=== PATIENT | male | born 1995 | race Caucasian/White ===

== ENCOUNTER 2018-02-13 17:12 | Emergency (ER) | payer OTHER ==
[2018-02-13 17:26] VITALS: BP 134/60
[2018-02-13] MEDS ORDERED: predniSONE TAB* 20 MG PO ONE (17:49)
--- NOTE | 2018-02-13 18:19 | UC ---
Skin Complaint HPI - HPI Summary HPI Summary: This is a 22-year-old male presenting with 1 day history of rash to his arms and legs. Rash is pruritic and spreading. A few days ago he had been out on a hike. - History of Current Complaint Chief Complaint: UCSkin Time Seen by Provider: 02/13/18 17:27 Stated Complaint: SKIN COMPLAINT Hx Obtained From: Patient Onset/Duration: Gradual Onset Timing: Constant Onset Severity: Mild Current Severity: Mild Pain Intensity: 0 Pain Scale Used: 0-10 Numeric Location: Other - arms and legs Character: Swelling, Pruritus, Redness Aggravating Factor(s): Nothing Alleviating Factor(s): Nothing Associated Signs & Symptoms: Positive: Rash - Allergy/Home Medications Allergies/Adverse Reactions: Allergies Allergy/AdvReac Type Severity Reaction Status Date / Time amoxicillin Allergy Hives Verified 02/13/18 17:24 Review of Systems Constitutional: Negative Skin: Rash Eyes: Negative ENT: Negative Respiratory: Negative Cardiovascular: Negative Gastrointestinal: Negative Genitourinary: Negative Motor: Negative Neurovascular: Negative Musculoskeletal: Negative Neurological: Negative Psychological: Negative Is Patient Immunocompromised?: No All Other Systems Reviewed And Are Negative: Yes PMH/Surg Hx/FS Hx/Imm Hx Previously Healthy: Yes - Surgical History Surgical History: None - Family History Known Family History: Positive: Hypertension - Social History Alcohol Use: Occasionally Substance Use Type: None Smoking Status (MU): Never Smoked Tobacco - Immunization History Most Recent Tetanus Shot: 01/12/16 Vaccination Up to Date: Yes Physical Exam Triage Information Reviewed: Yes Appearance: Well-Appearing, No Pain Distress, Well-Nourished Vital Signs: Initial Vital Signs Temp 98.8 F 02/13/18 17:22 Pulse 84 02/13/18 17:22 Resp 15 02/13/18 17:22 BP 134/60 02/13/18 17:22 Pulse Ox 98 02/13/18 17:22 Vital Signs Reviewed: Yes Eyes: Positive: Conjunctiva Clear ENT: Positive: Hearing grossly normal. Negative: Pharyngeal erythema, Nasal drainage, Trismus, Muffled voice, Hoarse voice Neck: Positive: Supple, Nontender Respiratory: Positive: Lungs clear, Normal breath sounds, No respiratory distress Cardiovascular: Positive: RRR, No Murmur Musculoskeletal: Positive: ROM Intact, No Edema Neurological: Positive: Alert Psychological Exam: Normal Skin Exam: Other - rash c/w contact derm Course/Dx - Diagnoses Provider Diagnoses: contact dermatitis Discharge - Sign-Out/Discharge Documenting (check all that apply): Discharge/Admit/Transfer - Discharge Plan Condition: Critical Disposition: HOME Prescriptions: predniSONE TAB* [Deltasone 10 MG TAB*] 10 - 60 mg PO DAILY #43 tab Patient Education Materials: Contact Dermatitis (ED) Referrals: Ananth Birmingham MD [Primary Care Provider] - If Needed Additional Instructions: take two 25mg benadryl at bedtime if needed for itching calomine lotion - Billing Disposition and Condition Condition: CRITICAL Disposition: Home
== END 2018-02-13 18:00 | disposition home or self-care (01) ==
LOC: UCCORT 17:12
DX: L25.9 Unspecified contact dermatitis, unspecified cause (principal); Z88.0 Allergy status to penicillin
CPT/HCPCS: 99212; G0463; J7512

== ENCOUNTER 2019-10-13 14:20 | Emergency (ER) | payer OTHER ==
[2019-10-13 14:40] VITALS: BP 120/58
--- NOTE | 2019-10-13 14:51 | UC ---
Abdominal Pain Male HPI - HPI Summary HPI Summary: 24 yo with onset of RLQ pain x 3 days ago. Pain is mostly present during the day , intensifies with activity or with lying on his abdomen, and has overall intensified over the past 3 days. No fever or chills, no recent illnesses. Appetite and bowel habit are normal--had normal stool today. No urinary symptoms. No previous abdominal surgeries. No radiation of pain. Able to sleep at night without increased discomfort. - History of Current Complaint Chief Complaint: UCAbdominalPain Stated Complaint: ABDOMINAL PAIN Time Seen by Provider: 10/13/19 14:39 Hx Obtained From: Patient Onset/Duration: Gradual Onset, Lasting Days Timing: Intermittent Episodes Lasting: - hours Pain Intensity: 3 Location: Discrete At: RLQ Radiates: No Character: Aching, Sharp Aggravating Factor(s): Movement Alleviating Factor(s): Rest Associated Signs And Symptoms: Negative: Diaphoresis, Fever, Cough, Chest Pain, Back Pain, Constipation, Blood in Stool, Urinary Symptoms, Decreased Appetite, Nausea, Vomiting, Diarrhea - Risk Factors Testicular Torsion: Negative Cardiac Risk Factors: Negative - Allergies/Home Medications Allergies/Adverse Reactions: Allergies Allergy/AdvReac Type Severity Reaction Status Date / Time amoxicillin Allergy Hives Verified 10/13/19 14:34 Home Medications: Home Medications NK [No Home Medications Reported] 10/13/19 [History Confirmed 10/13/19] PMH/Surg Hx/FS Hx/Imm Hx Previously Healthy: Yes - Surgical History Surgical History: None - Family History Known Family History: Positive: Hypertension, Other - father has had kidney stones - Social History Occupation: Employed Full-time Lives: With Family Alcohol Use: Occasionally Substance Use Type: Marijuana Substance Use Comment - Amount & Last Used: OCCASSIONAL Smoking Status (MU): Never Smoked Tobacco - Immunization History Most Recent Tetanus Shot: 01/12/16 Vaccination Up to Date: Yes Review of Systems All Other Systems Reviewed And Are Negative: Yes Constitutional: Positive: Negative Skin: Positive: Negative Eyes: Positive: Negative ENT: Positive: Negative Respiratory: Positive: Negative Cardiovascular: Positive: Negative Gastrointestinal: Positive: Abdominal Pain. Negative: Vomiting, Diarrhea Genitourinary: Negative: Dysuria, Hematuria, Frequency Motor: Positive: Negative Neurovascular: Positive: Negative Musculoskeletal: Positive: Negative Neurological/Mental Status: Positive: Negative Psychological: Positive: Negative Is Patient Immunocompromised?: No Physical Exam Triage Information Reviewed: Yes Appearance: Well-Appearing, Pain Distress - mild Vital Signs: Initial Vital Signs Temp 98.4 F 10/13/19 14:35 Pulse 61 10/13/19 14:35 Resp 18 10/13/19 14:35 BP 120/58 10/13/19 14:35 Pulse Ox 96 10/13/19 14:35 Eye Exam: Normal ENT: Positive: Pharynx normal Neck: Positive: Supple, Nontender, No Lymphadenopathy Respiratory: Positive: Lungs clear, Normal breath sounds, No respiratory distress Cardiovascular: Positive: RRR, No Murmur, Pulses Normal Abdomen Description: Positive: No Organomegaly, Soft, Guarding, McBurney's Point Tenderness. Negative: CVA Tenderness (R), CVA Tenderness (L), Distended, Hepatomegaly, Peritoneal Signs, Splenomegaly Bowel Sounds: Positive: Hypoactive Musculoskeletal Exam: Normal, Other Musculoskeletal: Positive: Strength Intact, ROM Intact Neurological Exam: Normal Psychological Exam: Normal Skin Exam: Normal Diagnostics - Laboratory Lab Results: UA with trace blood, no WBC's Abd Pain Male Course/Dx - Course Course Of Treatment: Persistent right lower quadrant pain in a 24 yo, possibly consistent with early appendicitis. UA with trace blood only. Will proceed to the emergency room for appropriate testing and evaluation. - Differential Dx/Clinical Impression Differential Diagnosis/HQI/PQRI: Appendicitis, Ureteral Stone, Urinary Tract Infection Provider Diagnosis: Abdominal pain - Physician Notification/Consults Discussed Patient Care With: ER provider Time Discussed With Above Provider: 15:10 Discharge ED - Sign-Out/Discharge Documenting (check all that apply): Patient Departure All imaging exams completed and their final reports reviewed: No Studies - Discharge Plan Condition: Stable Disposition: HOME Patient Education Materials: Acute Abdominal Pain (ED) Referrals: Ananth Birmingham MD [Primary Care Provider] - Additional Instructions: Please proceed straight to the emergency room. Please do not eat or drink until you have been evaluated in the ER. - Billing Disposition and Condition Condition: STABLE Disposition: Home
== END 2019-10-13 15:14 | disposition home or self-care (01) ==
LOC: UCEAST 14:20
DX: R10.9 Unspecified abdominal pain (principal); Z88.0 Allergy status to penicillin
CPT/HCPCS: 81003; 99212; G0463

== ENCOUNTER 2019-10-13 15:27 | Emergency (ER) | payer OTHER ==
[2019-10-13] MEDS ORDERED: NS 0.9% 1000 ML** 1,000 ML IV ONE (15:49)
--- NOTE | 2019-10-13 15:50 | ED ---
Abdominal Pain/Male - HPI Summary HPI Summary: 24 y/o male presented to [facility] for RLQ pain present for days that is worsened by exertion and has gotten worse since onset. Pt denies fever, chills, and vomiting. Pt states he has been eating normally and denies groin pain, testicular pain, and pain or burning while urinating. Pt denies surgical hx, is not on pain medications, and last ate last night. - History of Current Complaint Chief Complaint: EDAbdPain Stated Complaint: ABDOMINAL PAIN PER PT Time Seen by Provider: 10/13/19 15:34 Hx Obtained From: Patient Onset/Duration: Lasting Days, Still Present Severity Currently: Moderate Pain Intensity: 4 Pain Scale Used: 0-10 Numeric Location: Discrete At: RLQ Aggravating Factor(s): Other: - exertion Alleviating Factor(s): Other: - rest Associated Signs And Symptoms: Positive: Other - negative - chills, groin pain, testicular pain, pain or burning while urinating, decreased oral intake. Negative: Fever, Vomiting - Allergies/Home Medications Allergies/Adverse Reactions: Allergies Allergy/AdvReac Type Severity Reaction Status Date / Time amoxicillin Allergy Hives Verified 10/13/19 15:31 Home Medications: Home Medications NK [No Home Medications Reported] 10/13/19 [History Confirmed 10/13/19] PMH/Surg Hx/FS Hx/Imm Hx Respiratory History: Reports: Hx Asthma - as child Sensory History: Denies: Hx Legally Blind, Hx Deafness Opthamlomology History: Denies: Hx Legally Blind EENT History: Denies: Hx Deafness Infectious Disease History: No Infectious Disease History: Denies: Traveled Outside the [place] in Last 30 Days - Family History Known Family History: Positive: Hypertension, Other - father has had kidney stones - Social History Alcohol Use: Occasionally Substance Use Type: Reports: Marijuana Substance Use Comment - Amount & Last Used: OCCASSIONAL Smoking Status (MU): Never Smoked Tobacco Review of Systems Negative: Fever, Chills Positive: Abdominal Pain, Other - negative decreased oral intake. Negative: Vomiting Genitourinary: Other - negative groin or testicular pain Negative: burning, dysuria All Other Systems Reviewed And Are Negative: Yes Physical Exam - Summary Physical Exam Summary: Constitutional: Well-developed, Well-nourished, Alert. (-) Distressed Skin: Warm, Dry HENT: Normocephalic; Atraumatic Eyes: Conjunctiva normal Neck: Musculoskeletal ROM normal neck. (-) JVD, (-) Stridor, (-) Tracheal deviation Cardio: Rhythm regular, rate normal, Heart sounds normal; Intact distal pulses; The pedal pulses are 2+ and symmetric. Radial pulses are 2+ and symmetric. (-) Murmur Pulmonary/Chest wall: Effort normal. (-) Respiratory distress, (-) Wheezes, (-) Rales Abd: Soft, (+) Focal tenderness in RLQ, (-) Distension, (-) Guarding, (-) Rebound Musculoskeletal: (-) Edema Lymph: (-) Cervical adenopathy Neuro: Alert, Oriented x3 Psych: Mood and affect Normal Triage Information Reviewed: Yes Vital Signs On Initial Exam: Initial Vitals Temp Pulse Resp BP Pulse Ox 97.5 F 54 17 121/74 98 10/13/19 15:29 10/13/19 15:29 10/13/19 15:29 10/13/19 15:29 10/13/19 15:29 Vital Signs Reviewed: Yes Procedures - Sedation Patient Received Moderate/Deep Sedation with Procedure: No Diagnostics - Vital Signs Vital Signs Temp Pulse Resp BP Pulse Ox 10/13/19 15:29 97.5 F 54 17 121/74 98 - Laboratory Result Diagrams: 10/13/19 15:46 10/13/19 15:46 Lab Statement: Any lab studies that have been ordered have been reviewed, and results considered in the medical decision making process. - CT abd/pel CT Interpretation Completed By: Radiologist Summary of CT Findings: IMPRESSION: NORMAL APPENDIX. NO ACUTE CT PATHOLOGY OF THE VISUALIZED ABDOMEN OR PELVIS. This report was reviewed by Dr. Boogie. Abdominal Pain Male Course/Dx - Course Course Of Treatment: 24 y/o male presented to [facility] for RLQ pain present for days that is worsened by exertion and has gotten worse since onset. Pt denies fever, chills, and vomiting. Pt states he has been eating normally and denies groin pain, testicular pain, and pain or burning while urinating. Pt denies surgical hx, is not on pain medications, and last ate last night. Exam showed Focal tenderness in RLQ. Bloodwork showed MCH H, bilirubin H. CT abd/pel showed NORMAL APPENDIX. NO ACUTE CT PATHOLOGY OF THE VISUALIZED ABDOMEN OR PELVIS. Pt was given 100ml IV Iohexol and 1L IV NaCl. Pt was diagnosed with abdominal pain and discharged to home. - Diagnoses Provider Diagnoses: Abdominal pain, Hyperbilirubinemia Discharge ED - Sign-Out/Discharge Documenting (check all that apply): Patient Departure - dc - Discharge Plan Condition: Stable Disposition: HOME Patient Education Materials: Abdominal Pain (ED) Referrals: Ananth Birmingham MD [Primary Care Provider] - Additional Instructions: Follow up with your primary care provider in 2-3 days. If you experience new or worsening symptoms please return to the ER. - Billing Disposition and Condition Condition: STABLE Disposition: Home - Attestation Statements Document Initiated by Patriciaibe: Yes Documenting Scribe: Tin Frankel Provider For Whom Della is Documenting (Include Credential): Bubba Boogie Scriblevi Attestation: Tin Bui, scribed for Bubba Boogie on 10/13/19 at 2014. Scribe Documentation Reviewed: Yes Provider Attestation: The documentation as recorded by the Tin fabian accurately reflects the service I personally performed and the decisions made by Bubba marino Status of Scribe Document: Viewed
[2019-10-13 15:57] LABS: ABS Lymphocytes 1.6 10^3/ul (1.0-4.8); ABS Monocytes 0.4 10^3/ul (0-0.8); Eosinophil % 0.7 %; Hematocrit 50 % (42-52); Hemoglobin 17.4 g/dL (14.0-18.0); Lymphocyte % 39.6 %; Mean Corpuscular HGB Conc 35 g/dL (31-36); Mean Corpuscular Hemoglobin 32 pg (27-31); Mean Corpuscular Volume 91 fL (80-94); Mean Platelet Volume 9.4 fL (7.4-10.4); Nucleated Red Blood Cells % 0.1; Platelet Count 153 10^3/uL (150-450); Red Blood Count 5.47 10^6 /uL (4.18-5.48); Red Cell Distribution Width 13 % (10-15); White Blood Count 4.1 10^3/uL (3.5-10.8)
[2019-10-13 16:12] LABS: ALT 21 U/L (7-52); AST 17 U/L (13-39); Albumin 4.9 g/dL (3.2-5.2); Albumin/Globulin Ratio 1.9 (1-3); Alkaline Phosphatase 55 U/L (34-104); Anion Gap 7 mmol/L (2-11); BUN/Creatinine Ratio 16.2 (8-20); Blood Urea Nitrogen 16 mg/dL (6-24); C Reactive Protein < 1.00 mg/L (<8.01); CO2 Carbon Dioxide 27 mmol/L (22-32); Calcium 9.5 mg/dL (8.6-10.3); Chloride 105 mmol/L (101-111); EGFR African American 114.4 (>60); EGFR Non-African American 94.5 (>60); Globulin 2.6 g/dL (2-4); Glucose 88 mg/dL (70-100); Potassium 3.8 mmol/L (3.5-5.0); Sodium 139 mmol/L (135-145); Total Protein 7.5 g/dL (6.4-8.9)
[2019-10-13] MEDS ORDERED: Iohexol 300* (CONTRAST) 10 ML SDV IV ONE (16:19)
[2019-10-13 17:38] VITALS: BP 124/63
== END 2019-10-13 17:37 | disposition home or self-care (01) ==
LOC: ED 15:27
DX: R10.31 Right lower quadrant pain (principal); E80.6 Other disorders of bilirubin metabolism; Z88.0 Allergy status to penicillin
CPT/HCPCS: 36415; 74177; 80053; 82248; 85025; 86140; 96360; 99282; Q9967